=== PATIENT | female | born 1960 | race Caucasian/White ===

== ENCOUNTER → 2017-05-16 | Outpatient (REF) | payer MEDICARE ==
[2017-05-16 12:06] LABS: ALBUMIN 3.8 GM/DL (3.2-5.2); ALBUMIN/GLOBULIN RATIO 1.15 (1.00-1.93); ALKALINE PHOSPHATASE 71 U/L (45-117); ALT/SGPT 42 U/L (12-78); ANION GAP 10 MEQ/L (8-16); AST/SGOT 29 U/L (15-37); BILIRUBIN,TOTAL 0.4 MG/DL (0.2-1.0); BLOOD UREA NITROGEN 11 MG/DL (7-18); CARBON DIOXIDE LEVEL 28 MEQ/L (21-32); CHLORIDE LEVEL 102 MEQ/L (98-107); CHOLESTEROL LEVEL 253 MG/DL (<200); GLOMERULAR FILTRATION RATE > 60.0 (>51); GLUCOSE, FASTING 107 MG/DL (70-105); SODIUM LEVEL 140 MEQ/L (136-145); TOTAL PROTEIN 7.1 GM/DL (6.4-8.2); TRIGLYCERIDES LEVEL 246 MG/DL (<150)
== END ==
LOC: M LABDRAW1 11:05
PROVIDERS: ATTEND Nurse Practitioner Family
DX: E78.4 Other hyperlipidemia (principal); I10 Essential (primary) hypertension; E11.9 Type 2 diabetes mellitus without complications

== ENCOUNTER → 2017-11-13 | Outpatient (CLI) | payer MEDICARE ==
[2017-11-13 13:37] LABS: BASO % 0.5 % (0.0-1.0); EOS # 0.2 10^3/uL (0.0-0.50); EOS % 2.4 % (0.0-3.0); HEMATOCRIT 37.7 % (36.0-47.0); HEMOGLOBIN 12.5 g/dl (12.0-16.0); IMMATURE GRANULOCYTE % 0.1 % (0-0); LYMPH # 3.1 10^3/uL (1.5-4.5); LYMPH % 40.4 % (24.0-44.0); MEAN CORPUSCULAR HEMOGLOBIN 28.2 pg (27.0-33.0); MEAN CORPUSCULAR HGB CONC 33.2 g/dl (32.0-36.5); MEAN CORPUSCULAR VOLUME 85.1 fl (80.0-96.0); MONO # 0.4 10^3/uL (0.0-0.8); MONO % 4.9 % (0.0-5.0); NEUTROPHILS # 3.9 10^3/uL (1.8-7.7); NEUTROPHILS % 51.7 % (36.0-66.0); PLATELET COUNT, AUTOMATED 288 10^3/uL (150-450); RED BLOOD COUNT 4.43 10^6/uL (4.00-5.40); RED CELL DISTRIBUTION WIDTH 12.7 % (11.5-14.5); WHITE BLOOD COUNT 7.6 10^3/uL (4.0-10.0)
[2017-11-13 14:17] LABS: ALBUMIN 3.8 GM/DL (3.2-5.2); ALBUMIN/GLOBULIN RATIO 1.09 (1.00-1.93); ALKALINE PHOSPHATASE 75 U/L (45-117); ALT/SGPT 47 U/L (12-78); ANION GAP 8 MEQ/L (8-16); AST/SGOT 33 U/L (7-37); BILIRUBIN,TOTAL 0.3 MG/DL (0.2-1.0); BLOOD UREA NITROGEN 13 MG/DL (7-18); CALCIUM LEVEL 8.7 MG/DL (8.5-10.1); CARBON DIOXIDE LEVEL 30 MEQ/L (21-32); CHLORIDE LEVEL 104 MEQ/L (98-107); CHOLESTEROL LEVEL 253 MG/DL (<200); CHOLESTEROL RISK RATIO 6.487 (<5); CREATININE FOR GFR 0.65 MG/DL (0.55-1.02); GLOMERULAR FILTRATION RATE > 60.0 (>51); GLUCOSE, FASTING 94 MG/DL (70-100); HDL CHOLESTEROL 39 MG/DL (>40); LDL CHOLESTEROL 174.8 MG/DL (<100); NON-HDL-C 214 MG/DL; POTASSIUM SERUM 4.3 MEQ/L (3.5-5.1); SODIUM LEVEL 142 MEQ/L (136-145); TOTAL PROTEIN 7.3 GM/DL (6.4-8.2); TRIGLYCERIDES LEVEL 196 MG/DL (<150)
[2017-11-13 14:36] LABS: ESTIMATED AVERAGE GLUCOSE 123 MG/DL (60-110); HEMOGLOBIN A1c 5.9 %
== END ==
LOC: M WUC 09:30
DX: I10 Essential (primary) hypertension (principal); E11.9 Type 2 diabetes mellitus without complications; E78.4 Other hyperlipidemia
CPT/HCPCS: 80053

== ENCOUNTER → 2018-05-11 | Outpatient (CLI) | payer MEDICARE | LOC: M WUC 09:44 | DX: M16.11 Unilateral primary osteoarthritis, right hip (principal) | CPT/HCPCS: 73502 ==

== ENCOUNTER → 2018-11-04 | Outpatient (CLI) | payer MEDICARE ==
[2018-11-04 12:04] LABS: BASO % 0.6 % (0.0-1.0); EOS # 0.2 10^3/uL (0.0-0.50); EOS % 2.9 % (0.0-3.0); HEMATOCRIT 36.3 % (36.0-47.0); HEMOGLOBIN 12.2 g/dl (12.0-15.5); LYMPH % 44.6 % (24.0-44.0); MEAN CORPUSCULAR HEMOGLOBIN 28.8 pg (27.0-33.0); MEAN CORPUSCULAR HGB CONC 33.6 g/dl (32.0-36.5); MEAN CORPUSCULAR VOLUME 85.8 fl (80.0-96.0); MONO # 0.4 10^3/uL (0.0-0.8); MONO % 5.4 % (0.0-5.0); NEUTROPHILS # 3.1 10^3/uL (1.8-7.7); NEUTROPHILS % 46.3 % (36.0-66.0); PLATELET COUNT, AUTOMATED 289 10^3/uL (150-450); RED BLOOD COUNT 4.23 10^6/uL (4.00-5.40); WHITE BLOOD COUNT 6.6 10^3/uL (4.0-10.0)
[2018-11-04 12:29] LABS: HEMOGLOBIN A1c 5.8 %
[2018-11-04 12:36] LABS: ALBUMIN 3.7 GM/DL (3.2-5.2); ALT/SGPT 66 U/L (12-78); BILIRUBIN,TOTAL 0.3 MG/DL (0.2-1.0); BLOOD UREA NITROGEN 17 MG/DL (7-18); CALCIUM LEVEL 8.8 MG/DL (8.5-10.1); CARBON DIOXIDE LEVEL 28 MEQ/L (21-32); CHLORIDE LEVEL 104 MEQ/L (98-107); CHOLESTEROL LEVEL 260 MG/DL (<200); CHOLESTEROL RISK RATIO 7.428 (<5); CPK CREATINE PHOSPHOKINASE 75 U/L (26-192); CREATININE FOR GFR 0.66 MG/DL (0.55-1.30); GLOMERULAR FILTRATION RATE > 60.0 (>51); GLUCOSE, FASTING 98 MG/DL (70-100); HDL CHOLESTEROL 35 MG/DL (>40); LDL CHOLESTEROL 177 MG/DL (<100); NON-HDL-C 225 MG/DL; SODIUM LEVEL 140 MEQ/L (136-145); TOTAL PROTEIN 6.8 GM/DL (6.4-8.2); TRIGLYCERIDES LEVEL 239 MG/DL (<150)
== END ==
LOC: M WUC 09:47
PROVIDERS: ATTEND Nurse Practitioner Family
DX: I10 Essential (primary) hypertension (principal); E11.9 Type 2 diabetes mellitus without complications; E78.49 Other hyperlipidemia

== ENCOUNTER 2020-04-21 04:07 | Emergency (ER) | payer MEDICARE ==
[~2020-04-21] VITALS: Ht 162.6 cm; Wt 122.7 kg
[2020-04-21] MEDS ORDERED: NS 1,000 ML IV ONE (04:30)
[2020-04-21] MEDS ORDERED: KETOROLAC 30 MG/ML 1ML VIAL IV ONE (04:30)
[2020-04-21] MEDS ORDERED: ONDANSETRON 4MG/2ML VIAL IV ONE (04:30)
[2020-04-21 04:36] LABS: BASO % 0.3 % (0.0-1.0); EOS # 0.1 10^3/uL (0.0-0.5); EOS % 0.5 % (0.0-3.0); HEMATOCRIT 36.7 % (36.0-47.0); HEMOGLOBIN 12.3 g/dl (12.0-15.5); LYMPH # 1.5 10^3/uL (1.5-5.0); LYMPH % 11.2 % (24.0-44.0); MEAN CORPUSCULAR HEMOGLOBIN 28.3 pg (27.0-33.0); MEAN CORPUSCULAR HGB CONC 33.5 g/dl (32.0-36.5); MEAN CORPUSCULAR VOLUME 84.4 fl (80.0-96.0); MONO # 0.7 10^3/uL (0.0-0.8); MONO % 5.2 % (0.0-5.0); NEUTROPHILS # 11.2 10^3/uL (1.5-8.5); NEUTROPHILS % 82.3 % (36.0-66.0); PLATELET COUNT, AUTOMATED 241 10^3/uL (150-450); RED BLOOD COUNT 4.35 10^6/uL (4.00-5.40); WHITE BLOOD COUNT 13.6 10^3/uL (4.0-10.0)
[2020-04-21 05:06] LABS: ALBUMIN 3.8 GM/DL (3.2-5.2); BILIRUBIN,DIRECT 0.1 MG/DL (0.0-0.2); BILIRUBIN,TOTAL 0.7 MG/DL (0.2-1.0); TOTAL PROTEIN 7.6 GM/DL (6.4-8.2)
--- NOTE | 2020-04-21 06:45 | REPVR ---
PROCEDURE INFORMATION: Exam: CT Abdomen And Pelvis Without Contrast Exam date and time: 04/21/2020 6:00 AM Age: 60 years old Clinical indication: Abdominal pain; Flank; Right; Additional info: Right flank pain TECHNIQUE: Imaging protocol: Computed tomography of the abdomen and pelvis without contrast. Radiation optimization: All CT scans at this facility use at least one of these dose optimization techniques: automated exposure control; mA and/or kV adjustment per patient size (includes targeted exams where dose is matched to clinical indication); or iterative reconstruction. COMPARISON: CR HIP COMPLETE 05/11/2018 9:49 AM FINDINGS: Lungs: Subpleural nodule in the posterior basal left lower lobe measuring 3 mm. (Series 201, image 21).There is dependent subcutaneous edema. Liver: Normal. No mass. Gallbladder and bile ducts: Status post cholecystectomy. No biliary ductal dilatation. Pancreas: Normal. No ductal dilation. Spleen: Normal. No splenomegaly. Adrenals: Normal. No mass. Kidneys and ureters: Mild right hydronephrosis. Mild right perinephric stranding. Nonobstructive stone in the lower pole of the right kidney measuring 3 mm. Stone in the right ureterovesicular junction measuring 4 mm. No left hydronephrosis. Stomach and bowel: Sigmoid diverticulosis without diverticulitis. No abnormal bowel dilatation. No abnormal bowel wall thickening. Appendix: Appendix is normal. Intraperitoneal space: Unremarkable. No free air. No significant fluid collection. Vasculature: Unremarkable. No abdominal aortic aneurysm. Lymph nodes: Unremarkable. No enlarged lymph nodes. Bladder: Bladder is decompressed. Reproductive: Uterus is normal. Bones/joints: Mild degenerative spine. No acute fracture. Soft tissues: Moderate ventral right upper quadrant abdominal hernia containing fat. Moderate umbilical hernia containing fat. There is no evidence of strangulation. There is dependent subcutaneous edema. IMPRESSION: 1. Acute obstructive right uropathy with ureterovesicular junction stone. 2. Nonobstructive stone in the right kidney. 3. Small subpleural nodule in the posterior basal left lower lobe. For patients at low risk (minimal or absent history of smoking and of other known risk factors), no routine follow-up is indicated. For patients at high risk (history of smoking or of other known risk factors), consider optional CT at 12 months. (Jamal et al., [employer], 2017) 4. Additional findings as described. Electronically signed by: Prieto Miller On 04/21/2020 06:44:53 AM
[2020-04-21] MEDS ORDERED: CIPR-249 PO (06:58)
[2020-04-21] MEDS ORDERED: PERC5TAB12 PO (06:58)
[2020-04-21] MEDS ORDERED: FLOM0.4C39 PO (06:58)
[2020-04-21] MEDS ORDERED: OXYCODONE/APAP 5MG/325MG(BULK FOR ED) 1 TABLET PO ONE (07:00)
[2020-04-21 07:15] VITALS: BP 145/58
[2020-04-21] MEDS ORDERED: PERCOCET 5MG/325MG TAB PO ONE (07:15)
[2020-04-21] MEDS ORDERED: TAMSULOSIN 0.4 MG CAP PO ONE (08:00)
[2020-04-21] MEDS ORDERED: CIPROFLOXACIN 500MG TABLET PO ONE (08:00)
--- NOTE | 2020-04-24 09:58 | ED PDOC ---
Post-Departure Follow-Up certifiied letter sent to pt re formal report of ct abd/p for fu Adan Hill MD Apr 24, 2020 09:58
== END 2020-04-21 07:28 | disposition home or self-care (01) ==
LOC: M ED 04:07
DX: N20.1 Calculus of ureter (principal); N39.0 Urinary tract infection, site not specified; I10 Essential (primary) hypertension; R91.1 Solitary pulmonary nodule
CPT/HCPCS: 74176; 80047; 80076; 81001; 83690; 85025; 87088; 87186; 93041; 96361; 96374; 96375; 99284; J1885; J2405

== ENCOUNTER 2024-04-03 11:37 | Emergency (ER) | payer MEDICARE ==
[~2024-04-03] VITALS: Ht 160 cm; Wt 114.2 kg
[~2024-04-03 11:37] MED LIST: CEFD300CAP PO; CIPR-249 PO; FLOM0.4C39 PO; PERC5TAB12 PO; PROB250C PO
[2024-04-03] MEDS ORDERED: IBUP200C25 PO (11:47)
[2024-04-03] MEDS ORDERED: CEFD1CAP9 (11:47)
[2024-04-03 12:37] LABS: HEMATOCRIT 30.1 % (36.0-47.0); HEMOGLOBIN 10.2 g/dl (12.0-15.5); MEAN CORPUSCULAR HEMOGLOBIN 28.2 pg (27.0-33.0); MEAN CORPUSCULAR HGB CONC 33.9 g/dl (32.0-36.5); MEAN CORPUSCULAR VOLUME 83.1 fl (80.0-96.0); PLATELET COUNT, AUTOMATED 262 10^3/uL (150-450); RED BLOOD COUNT 3.62 10^6/uL (4.00-5.40); WHITE BLOOD COUNT 8.9 10^3/uL (4.0-10.0)
[2024-04-03 12:58] LABS: ATYPICAL LYMPH 7 % (0-5); BASOPHILS 2 % (0-1); EOSINOPHILS 6 % (0-3); LYMPHOCYTES 11 % (16-44); METAMYELOCYTES 1 % (0-0); MONOCYTES 6 % (0-5); MYELOCYTES 4 % (0-0); NEUTROPHILS 62 % (28-66)
[2024-04-03 12:59] LABS: PLATELET CLUMPS SMALL AMT; PLATELET ESTIMATE NORMAL (NORMAL)
[2024-04-03 13:08] LABS: ALBUMIN 2.6 G/DL (3.2-5.2); ALKALINE PHOSPHATASE 71 U/L (46-116); ALT/SGPT 22 U/L (7.0-40); AST/SGOT 46 U/L (<34); BILIRUBIN,DIRECT < 0.1 MG/DL (<0.4); BILIRUBIN,TOTAL 0.3 MG/DL (0.3-1.2); CK-MB VALUE MASS < 1.0 NG/ML (<3.6); CPK CREATINE PHOSPHOKINASE 49 U/L (34-145); MB/CK RELATIVE INDEX 2.04 (< OR =4); TOTAL PROTEIN 6.5 G/DL (5.7-8.2)
[2024-04-03 13:21] LABS: ERYTHROCYTE SEDIMENTATION RATE 85 mm/hr (0-30)
[2024-04-03] MEDS ORDERED: ISOVUE-370 76% 100ML VIAL As Ordered ONE (13:30)
[2024-04-03 13:46] LABS: PROCALCITONIN 0.93 ng/ml
[2024-04-03] MEDS: KETOROLAC 30 MG/ML 1ML VIAL IV ONE (14:01)
[2024-04-03] MEDS: NS 1,000 ML IV ONE (14:01)
[2024-04-03] MEDS: ONDANSETRON 4MG 2ML VIAL IV ONE (14:01)
[2024-04-03 14:12] LABS: APPEARANCE, URINE HAZY (CLEAR); BACTERIA, URINE AUTO NEGATIVE (NEGATIVE); BILIRUBIN, URINE AUTO NEGATIVE (NEGATIVE); BLOOD, URINE BLOOD 2+ (NEGATIVE); COLOR, URINE YELLOW (YELLOW); GLUCOSE, URINE (UA) AUTO NEGATIVE (NEGATIVE); KETONE, URINE AUTO NEGATIVE (NEGATIVE); LEUKOCYTE ESTERASE, URINE AUTO 2+ (NEGATIVE); MUCUS, URINE SMALL (NEGATIVE); NITRITE, URINE AUTO NEGATIVE (NEGATIVE); PROTEIN, URINE AUTO 1+ mg/dL (NEGATIVE); RBC, URINE AUTO 32 /HPF (0-3); SQUAMOUS EPITHELIAL CELL UR AU 2 /HPF (0-6); UROBILINOGEN, URINE AUTO 0.2 mg/dL (0.0-2.0); WBC, URINE AUTO 43 /HPF (0-3)
[2024-04-03] MEDS: MORPHINE 4 MG/ML 1ML VIAL IV ONE (14:36)
[2024-04-03 16:45] VITALS: BP 136/57; O2SAT 90
[2024-04-03 16:57] VITALS: TEMP 97.6
== END 2024-04-03 17:08 | disposition home or self-care (01) ==
LOC: M ED 11:37
DX: R10.11 Right upper quadrant pain (principal); R10.31 Right lower quadrant pain; I10 Essential (primary) hypertension; Z87.442 Personal history of urinary calculi; Z87.448 Personal history of other diseases of urinary system; Z96.0 Presence of urogenital implants
CPT/HCPCS: 71046; 74177; 80047; 80076; 81001; 82550; 82553; 83605; 84145; 84484; 85025; 85652; 86140; 87486; 87581; 87633; 87798; 93005; 96361; 96374; 96375; 99284; J1885; J2405; Q9967

== ENCOUNTER → 2024-04-13 | Outpatient (REF) | payer MEDICARE ==
[~2024-04-13] MED LIST changes: +CEFD1CAP9; +IBUP200C25 PO
[2024-04-13 15:21] LABS: APPEARANCE, URINE CLOUDY (CLEAR); BACTERIA, URINE AUTO NEGATIVE (NEGATIVE); BILIRUBIN, URINE AUTO NEGATIVE (NEGATIVE); BLOOD, URINE BLOOD 3+ (NEGATIVE); COLOR, URINE YELLOW (YELLOW); GLUCOSE, URINE (UA) AUTO NEGATIVE (NEGATIVE); KETONE, URINE AUTO TRACE mg/dL (NEGATIVE); LEUKOCYTE ESTERASE, URINE AUTO 3+ (NEGATIVE); MUCUS, URINE SMALL (NEGATIVE); NITRITE, URINE AUTO NEGATIVE (NEGATIVE); PROTEIN, URINE AUTO 1+ mg/dL (NEGATIVE); RBC, URINE AUTO 120 /HPF (0-3); SPECIFIC GRAVITY URINE AUTO 1.012 (1.002-1.035); SQUAMOUS EPITHELIAL CELL UR AU 3 /HPF (0-6); UROBILINOGEN, URINE AUTO 0.2 mg/dL (0.0-2.0); WBC, URINE AUTO TNTC /HPF (0-3)
== END ==
LOC: M SFHCPLAZ 12:01
PROVIDERS: ATTEND Family Medicine
DX: R35.0 Frequency of micturition (principal); Z09 Encounter for follow-up examination after completed treatment for conditions other than malignant neoplasm

== ENCOUNTER → 2024-04-13 | Outpatient (CLI) | payer MEDICARE ==
[~2024-04-13] MED LIST changes: +ACET-683 PO; +CEFD1CAP9 PO; +ONDA-83 PO; +OXYB5TAB14 PO; +PANT-23 PO; +PERCOCET PO
[2024-04-13 15:40] LABS: BASO % 0.4 % (0.0-1.0); EOS # 0.1 10^3/uL (0.0-0.5); EOS % 1.3 % (0.0-3.0); HEMATOCRIT 35.9 % (36.0-47.0); HEMOGLOBIN 11.8 g/dl (12.0-15.5); LYMPH # 3.1 10^3/uL (1.5-5.0); LYMPH % 34.1 % (24.0-44.0); MEAN CORPUSCULAR HEMOGLOBIN 27.6 pg (27.0-33.0); MEAN CORPUSCULAR HGB CONC 32.9 g/dl (32.0-36.5); MEAN CORPUSCULAR VOLUME 84.1 fl (80.0-96.0); MONO # 0.5 10^3/uL (0.0-0.8); MONO % 5.2 % (2.0-8.0); NEUTROPHILS # 5.3 10^3/uL (1.5-8.5); NEUTROPHILS % 58.7 % (36.0-66.0); PLATELET COUNT, AUTOMATED 319 10^3/uL (150-450); RED BLOOD COUNT 4.27 10^6/uL (4.00-5.40); WHITE BLOOD COUNT 9.1 10^3/uL (4.0-10.0)
[2024-04-13 16:08] LABS: ALBUMIN 3.5 G/DL (3.2-5.2); ALKALINE PHOSPHATASE 67 U/L (46-116); ALT/SGPT 29 U/L (7.0-40); AST/SGOT 34 U/L (<34); BILIRUBIN,TOTAL 0.5 MG/DL (0.3-1.2); BLOOD UREA NITROGEN 12 MG/DL (9-23); CALCIUM LEVEL 9.1 MG/DL (8.3-10.6); CARBON DIOXIDE LEVEL 31 MMOL/L (20-31); CHLORIDE LEVEL 102 MMOL/L (98-107); CREATININE FOR GFR 0.64 MG/DL (0.55-1.30); GLOMERULAR FILTRATION RATE > 60.0 (>45); GLUCOSE, FASTING 149 MG/DL (74-106); POTASSIUM SERUM 3.4 MMOL/L (3.5-5.1); SODIUM LEVEL 142 MMOL/L (136-145); TOTAL PROTEIN 7.5 G/DL (5.7-8.2)
== END ==
LOC: M PLALAB 12:18
PROVIDERS: ATTEND Student in an Organized Health Care Education/Training Program
DX: Z09 Encounter for follow-up examination after completed treatment for conditions other than malignant neoplasm (principal); R35.0 Frequency of micturition

== ENCOUNTER → 2024-05-04 | Outpatient (CLI) | payer MEDICARE ==
[2024-05-04 17:53] LABS: BASO % 0.3 % (0.0-1.0); EOS # 0.2 10^3/uL (0.0-0.5); EOS % 1.7 % (0.0-3.0); HEMATOCRIT 35.2 % (36.0-47.0); HEMOGLOBIN 11.2 g/dl (12.0-15.5); LYMPH # 2.4 10^3/uL (1.5-5.0); LYMPH % 27.1 % (24.0-44.0); MEAN CORPUSCULAR HGB CONC 31.8 g/dl (32.0-36.5); MEAN CORPUSCULAR VOLUME 84.8 fl (80.0-96.0); MONO # 0.5 10^3/uL (0.0-0.8); MONO % 5.7 % (2.0-8.0); NEUTROPHILS # 5.8 10^3/uL (1.5-8.5); NEUTROPHILS % 64.6 % (36.0-66.0); PLATELET COUNT, AUTOMATED 333 10^3/uL (150-450); RED BLOOD COUNT 4.15 10^6/uL (4.00-5.40)
[2024-05-04 18:06] LABS: ALBUMIN 3.4 G/DL (3.2-5.2); ALKALINE PHOSPHATASE 73 U/L (46-116); ALT/SGPT 12 U/L (7.0-40); AST/SGOT 13 U/L (<34); BILIRUBIN,TOTAL 0.4 MG/DL (0.3-1.2); BLOOD UREA NITROGEN 11 MG/DL (9-23); CARBON DIOXIDE LEVEL 34 MMOL/L (20-31); CHLORIDE LEVEL 100 MMOL/L (98-107); CREATININE FOR GFR 0.95 MG/DL (0.55-1.30); GLOMERULAR FILTRATION RATE > 60.0 (>45); GLUCOSE, FASTING 160 MG/DL (74-106); MAGNESIUM LEVEL 1.8 MG/DL (1.8-2.4); POTASSIUM SERUM 3.4 MMOL/L (3.5-5.1); SODIUM LEVEL 139 MMOL/L (136-145); TOTAL PROTEIN 7.4 G/DL (5.7-8.2)
[2024-05-15 02:16] LABS: ALPHA 2-MACROGLOBULINS,QN 338 mg/dL (106-279); ALT (SGPT) P5P 8 U/L (6-29); APOLIPOPROTEIN A-1 107 mg/dL (101-198); BILIRUBIN, TOTAL 0.3 mg/dL (0.2-1.2); FIBROSIS SCORE 0.39; FIBROSIS STAGE MINIMAL FIBROSIS (F0); GGT 39 U/L (3-65); HAPTOGLOBIN 317 mg/dL (43-212); NECROINFLAM ACT GRADE NO ACTIVITY (A0); NECROINFLAM ACT SCORE 0.02
== END ==
LOC: M PLALAB 15:22
PROVIDERS: ATTEND Student in an Organized Health Care Education/Training Program
DX: Z09 Encounter for follow-up examination after completed treatment for conditions other than malignant neoplasm (principal); K74.69 Other cirrhosis of liver

== ENCOUNTER → 2024-05-04 | Outpatient (REF) | payer MEDICARE | LOC: M SFHCPLAZ 09:48 | PROVIDERS: ATTEND Family Medicine | DX: Z09 Encounter for follow-up examination after completed treatment for conditions other than malignant neoplasm (principal); K74.69 Other cirrhosis of liver ==

== ENCOUNTER 2024-05-13 07:17 | Day surgery (SDC) | payer MEDICARE ==
[~2024-05-13] VITALS: Ht 160 cm; Wt 105.0 kg
[2024-05-13] MEDS ORDERED: LIDOCAINE 1% SDV 5ML VIAL SC PRN (07:40)
[2024-05-13] MEDS ORDERED: propofoL 200 MG/20 ML VIAL As Ordered ONE (07:44)
[2024-05-13] MEDS ORDERED: LIDOCAINE 2% 100MG/5ML SDV (FOR ANES.) As Ordered ONE (07:44)
[2024-05-13] MEDS ORDERED: MIDAZOLAM INJ 2MG/2ML VIAL As Ordered ONE (07:57)
[2024-05-13] MEDS ORDERED: fentaNYL 100 MCG/2 ML INJECTION As Ordered ONE (07:57)
[2024-05-13] MEDS: LR 1,000 ML IV SCH (08:52)
[2024-05-13] MEDS: ceFAZolin SOD 2 GM in IV 1 EA IV ONE (09:15)
[2024-05-13] MEDS ORDERED: OXYB5TAB14 PO (09:46)
[2024-05-13] MEDS ORDERED: ACETAMINOPHEN 1000MG 100ML IV BAG As Ordered ONE (09:55)
[2024-05-13] MEDS ORDERED: KETOROLAC 60MG 2ML VIAL As Ordered ONE (09:55)
[2024-05-13] MEDS ORDERED: oxyBUTYnin 5 MG TAB PO PRN (10:15)
[2024-05-13 10:40] VITALS: BP 129/64; TEMP 97.6; O2SAT 96
== END 2024-05-13 10:40 | disposition home or self-care (01) ==
LOC: M SDC 07:17
PROVIDERS: ATTEND Urology
DX: N20.0 Calculus of kidney (principal); K21.9 Gastro-esophageal reflux disease without esophagitis; Z79.899 Other long term (current) drug therapy
CPT/HCPCS: 50590; 74018; J0131; J0690; J1885; J2250; J3010

== ENCOUNTER 2024-05-18 13:54 | Inpatient (IN) | payer MEDICARE ==
[~2024-05-18] VITALS: Ht 160 cm; Wt 104.0 kg
[2024-05-18 16:07] LABS: BASO % 0.3 % (0.0-1.0); EOS # 0.2 10^3/uL (0.0-0.5); EOS % 1.3 % (0.0-3.0); HEMATOCRIT 36.8 % (36.0-47.0); HEMOGLOBIN 11.9 g/dl (12.0-15.5); LYMPH # 2.3 10^3/uL (1.5-5.0); LYMPH % 18.1 % (24.0-44.0); MEAN CORPUSCULAR HEMOGLOBIN 26.6 pg (27.0-33.0); MEAN CORPUSCULAR HGB CONC 32.3 g/dl (32.0-36.5); MEAN CORPUSCULAR VOLUME 82.1 fl (80.0-96.0); MONO # 0.9 10^3/uL (0.0-0.8); MONO % 6.9 % (2.0-8.0); NEUTROPHILS # 9.3 10^3/uL (1.5-8.5); PLATELET COUNT, AUTOMATED 339 10^3/uL (150-450); RED BLOOD COUNT 4.48 10^6/uL (4.00-5.40); WHITE BLOOD COUNT 12.8 10^3/uL (4.0-10.0)
[2024-05-18 16:29] LABS: ALBUMIN 3.6 G/DL (3.2-5.2); BILIRUBIN,DIRECT 0.2 MG/DL (<0.4); BILIRUBIN,TOTAL 0.7 MG/DL (0.3-1.2); CREATININE FOR GFR 1.07 MG/DL (0.55-1.30); GLOMERULAR FILTRATION RATE 54.8 (>45); POTASSIUM SERUM 3.5 MMOL/L (3.5-5.1)
[2024-05-18] MEDS: NS 1,000 ML IV ONE ×2 (17:32→23:07)
[2024-05-18] MEDS: ONDANSETRON 4MG 2ML VIAL IV ONE (17:43)
[2024-05-18] MEDS: KETOROLAC 30 MG/ML 1ML VIAL IV ONE (17:44)
[2024-05-18] MEDS ORDERED: ISOVUE-370 76% 100ML VIAL As Ordered ONE (18:40)
[2024-05-18] MEDS ORDERED: MOM 30ML SUSPENSION UDC PO PRN (22:30)
[2024-05-18] MEDS ORDERED: ONDA-83 PO (22:47)
[2024-05-18] MEDS ORDERED: HOME MED LIST COMPLETE! XX SCH (22:50)
[2024-05-18] MEDS: cefTRIAXone SOD 2 GM in D5W MINI-BAG PLUS 50 ML IV SCH (23:07)
[2024-05-18] MEDS: PROMETHAZINE 25MG/ML 1ML VIAL IV PRN (23:10)
[2024-05-18] MEDS: MORPHINE 2 MG/ML 1ML VIAL IV PRN (23:11)
[2024-05-18] MEDS: NS 1,000 ML IV SCH (23:12)
[2024-05-19] MEDS: HEPARIN SOD (PORCINE) 5000UNITS/ML 1ML VIAL/SYRINGE SC SCH (05:32)
[2024-05-19] MEDS: ACETAMINOPHEN TAB 650MG DOSE (2X325MG) PO PRN (05:53)
[2024-05-19 07:41] LABS: MEAN CORPUSCULAR HEMOGLOBIN 26.8 pg (27.0-33.0); MEAN CORPUSCULAR HGB CONC 32.5 g/dl (32.0-36.5); MEAN CORPUSCULAR VOLUME 82.6 fl (80.0-96.0); RED BLOOD COUNT 3.39 10^6/uL (4.00-5.40); WHITE BLOOD COUNT 8.4 10^3/uL (4.0-10.0)
[2024-05-19 07:49] LABS: HEMOGLOBIN 9.1 g/dl (12.0-15.5); PLATELET COUNT, AUTOMATED 236 10^3/uL (150-450)
[2024-05-19 07:53] LABS: ALBUMIN 2.7 G/DL (3.2-5.2); BILIRUBIN,TOTAL 0.5 MG/DL (0.3-1.2); CALCIUM LEVEL 7.6 MG/DL (8.3-10.6); CREATININE FOR GFR 0.99 MG/DL (0.55-1.30); GLOMERULAR FILTRATION RATE 59.9 (>45); POTASSIUM SERUM 3.2 MMOL/L (3.5-5.1); TOTAL PROTEIN 6.2 G/DL (5.7-8.2)
[2024-05-19 10:09] LABS: HEMOGLOBIN A1c 6.6 % (4.0-6.0)
[2024-05-19] MEDS: KETOROLAC 30 MG/ML 1ML VIAL IV PRN (14:15)
[2024-05-19] MEDS: POTASSIUM CHLORIDE 10MEQ SR TABLET PO ONE (14:18)
[2024-05-19 16:37] VITALS: BP 156/68; TEMP 97.4; O2SAT 96
[2024-05-19 19:00] VITALS: BP 148/65; TEMP 97.8; O2SAT 96
[2024-05-19] MEDS: MORPHINE 4 MG/ML 1ML VIAL IV PRN (19:56)
[2024-05-19] MEDS: SENOKOT S TAB PO SCH (20:01)
[2024-05-19 23:42] VITALS: BP 130/61; TEMP 98.5; O2SAT 96
[2024-05-20 04:11] VITALS: BP 150/65; TEMP 97.1; O2SAT 94
[2024-05-20] MEDS: PROMETHAZINE 25 MG TAB PO ONE (05:28)
[2024-05-20 07:42] VITALS: BP 126/58; TEMP 96.9; O2SAT 96
[2024-05-20 07:59] LABS: BASO % 0.5 % (0.0-1.0); EOS # 0.2 10^3/uL (0.0-0.5); EOS % 4.2 % (0.0-3.0); HEMOGLOBIN 9.6 g/dl (12.0-15.5); LYMPH % 35.3 % (24.0-44.0); MEAN CORPUSCULAR HEMOGLOBIN 26.9 pg (27.0-33.0); MONO # 0.4 10^3/uL (0.0-0.8); MONO % 6.9 % (2.0-8.0); NEUTROPHILS # 2.9 10^3/uL (1.5-8.5); NEUTROPHILS % 52.7 % (36.0-66.0); PLATELET COUNT, AUTOMATED 251 10^3/uL (150-450); RED BLOOD COUNT 3.57 10^6/uL (4.00-5.40); WHITE BLOOD COUNT 5.5 10^3/uL (4.0-10.0)
[2024-05-20 08:24] LABS: BLOOD UREA NITROGEN 10 MG/DL (9-23); CARBON DIOXIDE LEVEL 29 MMOL/L (20-31); CHLORIDE LEVEL 106 MMOL/L (98-107); CREATININE FOR GFR 0.92 MG/DL (0.55-1.30); GLOMERULAR FILTRATION RATE > 60.0 (>45); GLUCOSE, FASTING 120 MG/DL (74-106); POTASSIUM SERUM 3.6 MMOL/L (3.5-5.1); SODIUM LEVEL 143 MMOL/L (136-145)
[2024-05-20] MEDS ORDERED: ONDANSETRON 4MG 2ML VIAL IV PRN (10:50)
[2024-05-20] MEDS: PANTOPRAZOLE 40MG VIAL IV SCH (11:58)
[2024-05-20] MEDS: METOCLOPRAMIDE 5 MG TAB PO SCH (11:58)
[2024-05-20 12:57] VITALS: BP 136/65; TEMP 98.1; O2SAT 94
[2024-05-20 13:30] VITALS: BP 142/75; TEMP 97.5; O2SAT 95
[2024-05-20] MEDS: oxyBUTYnin 5 MG TAB PO PRN (17:45)
[2024-05-20] MEDS: KETOROLAC 30 MG/ML 1ML VIAL IV PRN (18:46)
[2024-05-20 20:00] VITALS: BP 137/53; TEMP 97.3; O2SAT 96
[2024-05-21 04:00] VITALS: BP 149/60; TEMP 97; O2SAT 98
[2024-05-21 06:07] LABS: BASO % 0.2 % (0.0-1.0); EOS # 0.2 10^3/uL (0.0-0.5); EOS % 4.4 % (0.0-3.0); HEMATOCRIT 28.6 % (36.0-47.0); HEMOGLOBIN 9.2 g/dl (12.0-15.5); LYMPH # 1.7 10^3/uL (1.5-5.0); LYMPH % 37.3 % (24.0-44.0); MEAN CORPUSCULAR HEMOGLOBIN 26.8 pg (27.0-33.0); MEAN CORPUSCULAR HGB CONC 32.2 g/dl (32.0-36.5); MEAN CORPUSCULAR VOLUME 83.4 fl (80.0-96.0); MONO # 0.3 10^3/uL (0.0-0.8); NEUTROPHILS # 2.3 10^3/uL (1.5-8.5); NEUTROPHILS % 50.4 % (36.0-66.0); PLATELET COUNT, AUTOMATED 235 10^3/uL (150-450); RED BLOOD COUNT 3.43 10^6/uL (4.00-5.40); WHITE BLOOD COUNT 4.6 10^3/uL (4.0-10.0)
[2024-05-21 06:32] LABS: BLOOD UREA NITROGEN 12 MG/DL (9-23); CARBON DIOXIDE LEVEL 28 MMOL/L (20-31); CHLORIDE LEVEL 106 MMOL/L (98-107); CREATININE FOR GFR 0.87 MG/DL (0.55-1.30); GLOMERULAR FILTRATION RATE > 60.0 (>45); GLUCOSE, FASTING 136 MG/DL (74-106); POTASSIUM SERUM 3.5 MMOL/L (3.5-5.1); SODIUM LEVEL 142 MMOL/L (136-145)
[2024-05-21 12:17] VITALS: BP 152/73; TEMP 97.5; O2SAT 94
[2024-05-21] MEDS ORDERED: METO5TAB2 PO (12:23)
[2024-05-21] MEDS ORDERED: CEFD1CAP9 PO (12:23)
[2024-05-21] MEDS ORDERED: OMEP40CA4 PO (12:24)
== END 2024-05-21 13:54 | disposition home or self-care (01) | DRG 862 ==
LOC: M ED 13:54 → M ED INP 22:30 → EEVIPCON 22:30 → M PCU 05-19 16:32 → M MSPAV 05-20 13:39
PROVIDERS: ADMIT Family Medicine; ATTEND Internal Medicine Nephrology
DX: T81.40XA Infection following a procedure, unspecified, initial encounter (principal); A41.9 Sepsis, unspecified organism; N10 Acute pyelonephritis; Z68.41 Body mass index [BMI] 40.0-44.9, adult; N13.30 Unspecified hydronephrosis; I10 Essential (primary) hypertension; E11.9 Type 2 diabetes mellitus without complications; K74.60 Unspecified cirrhosis of liver; K75.81 Nonalcoholic steatohepatitis (NASH); E66.01 Morbid (severe) obesity due to excess calories; Z79.899 Other long term (current) drug therapy

== ENCOUNTER → 2024-05-25 | Outpatient (REF) | payer MEDICARE ==
[~2024-05-25] MED LIST changes: +METO5TAB2 PO; +OMEP40CA4 PO
== END ==
LOC: M SFHCPLAZ 17:33
PROVIDERS: ATTEND Family Medicine
DX: Z09 Encounter for follow-up examination after completed treatment for conditions other than malignant neoplasm (principal); D50.9 Iron deficiency anemia, unspecified

== ENCOUNTER → 2024-05-26 | Outpatient (REF) | payer MEDICARE | LOC: M SFHCPLAZ 13:56 | PROVIDERS: ATTEND Family Medicine | DX: Z09 Encounter for follow-up examination after completed treatment for conditions other than malignant neoplasm (principal); D50.9 Iron deficiency anemia, unspecified; Z53.9 Procedure and treatment not carried out, unspecified reason ==

== ENCOUNTER → 2024-06-17 | Outpatient (CLI) | payer MEDICARE ==
[2024-06-17 15:17] LABS: MAGNESIUM LEVEL 1.8 MG/DL (1.8-2.4)
[2024-06-17 15:21] LABS: FERRITIN 115.1 NG/ML (7.3-270.7)
== END ==
LOC: M LAB 13:07
PROVIDERS: ATTEND Student in an Organized Health Care Education/Training Program
DX: K74.69 Other cirrhosis of liver (principal); Z09 Encounter for follow-up examination after completed treatment for conditions other than malignant neoplasm

== ENCOUNTER → 2024-06-17 | Outpatient (CLI) | payer MEDICARE | LOC: M RAD 12:58 | PROVIDERS: ATTEND Urology | DX: N20.0 Calculus of kidney (principal) ==

== ENCOUNTER → 2024-06-17 | Outpatient (REF) | payer MEDICARE | LOC: M SFHCPLAZ 14:59 | PROVIDERS: ATTEND Physician Assistant | DX: R39.9 Unspecified symptoms and signs involving the genitourinary system (principal) ==

== ENCOUNTER → 2024-06-17 | Outpatient (CLI) | payer MEDICARE ==
[2024-06-17 15:03] LABS: BASO % 0.4 % (0.0-1.0); EOS # 0.2 10^3/uL (0.0-0.5); EOS % 2.4 % (0.0-3.0); HEMATOCRIT 34.8 % (36.0-47.0); HEMOGLOBIN 11.2 g/dl (12.0-15.5); LYMPH # 2.7 10^3/uL (1.5-5.0); LYMPH % 39.9 % (24.0-44.0); MEAN CORPUSCULAR HEMOGLOBIN 26.5 pg (27.0-33.0); MEAN CORPUSCULAR HGB CONC 32.2 g/dl (32.0-36.5); MEAN CORPUSCULAR VOLUME 82.5 fl (80.0-96.0); MONO # 0.4 10^3/uL (0.0-0.8); MONO % 5.4 % (2.0-8.0); NEUTROPHILS # 3.5 10^3/uL (1.5-8.5); NEUTROPHILS % 51.6 % (36.0-66.0); PLATELET COUNT, AUTOMATED 231 10^3/uL (150-450); RED BLOOD COUNT 4.22 10^6/uL (4.00-5.40); WHITE BLOOD COUNT 6.7 10^3/uL (4.0-10.0)
[2024-06-17 15:16] LABS: C REACTIVE PROTEIN QUANTITATIV < 0.40 MG/DL (<1.0)
[2024-06-17 15:20] LABS: ALBUMIN 3.8 G/DL (3.2-5.2); ALKALINE PHOSPHATASE 77 U/L (46-116); ALT/SGPT 36 U/L (7.0-40); AST/SGOT 38 U/L (<34); BILIRUBIN,TOTAL 0.6 MG/DL (0.3-1.2); BLOOD UREA NITROGEN 13 MG/DL (9-23); CALCIUM LEVEL 9.1 MG/DL (8.3-10.6); CARBON DIOXIDE LEVEL 30 MMOL/L (20-31); CHLORIDE LEVEL 104 MMOL/L (98-107); CREATININE FOR GFR 0.72 MG/DL (0.55-1.30); GLOMERULAR FILTRATION RATE > 60.0 (>45); GLUCOSE, FASTING 114 MG/DL (74-106); POTASSIUM SERUM 3.3 MMOL/L (3.5-5.1); SODIUM LEVEL 142 MMOL/L (136-145); TOTAL PROTEIN 7.4 G/DL (5.7-8.2)
[2024-06-17 15:37] LABS: ERYTHROCYTE SEDIMENTATION RATE 36 mm/hr (0-30)
== END ==
LOC: M RAD 12:53
PROVIDERS: ATTEND Physician Assistant
DX: R39.9 Unspecified symptoms and signs involving the genitourinary system (principal); N20.0 Calculus of kidney; R50.9 Fever, unspecified; Z86.19 Personal history of other infectious and parasitic diseases

== ENCOUNTER 2024-07-24 13:42 | Emergency (ER) | payer MEDICARE ==
[~2024-07-24] VITALS: Ht 160 cm; Wt 102.3 kg
[2024-07-24 15:40] LABS: BASO # 0.1 10^3/uL (0.0-0.2); BASO % 0.6 % (0.0-1.0); EOS # 0.2 10^3/uL (0.0-0.5); EOS % 2.3 % (0.0-3.0); HEMATOCRIT 39.3 % (36.0-47.0); LYMPH # 3.2 10^3/uL (1.5-5.0); LYMPH % 35.5 % (24.0-44.0); MEAN CORPUSCULAR HEMOGLOBIN 26.9 pg (27.0-33.0); MEAN CORPUSCULAR HGB CONC 33.1 g/dl (32.0-36.5); MEAN CORPUSCULAR VOLUME 81.4 fl (80.0-96.0); MONO # 0.4 10^3/uL (0.0-0.8); MONO % 4.7 % (2.0-8.0); NEUTROPHILS % 56.4 % (36.0-66.0); PLATELET COUNT, AUTOMATED 277 10^3/uL (150-450); RED BLOOD COUNT 4.83 10^6/uL (4.00-5.40); WHITE BLOOD COUNT 8.9 10^3/uL (4.0-10.0)
[2024-07-24] MEDS: ONDANSETRON 4MG 2ML VIAL IV ONE (15:46)
[2024-07-24] MEDS: MORPHINE 4 MG/ML 1ML VIAL IV PRN (15:46)
[2024-07-24 17:39] LABS: LIPASE 52 U/L (12-53)
[2024-07-24 17:44] LABS: ALBUMIN 3.6 G/DL (3.2-5.2); ALKALINE PHOSPHATASE 81 U/L (46-116); ALT/SGPT 23 U/L (7.0-40); AST/SGOT 22 U/L (<34); BILIRUBIN,DIRECT < 0.1 MG/DL (<0.4); BILIRUBIN,TOTAL 0.3 MG/DL (0.3-1.2); BLOOD UREA NITROGEN 13 MG/DL (9-23); CALCIUM LEVEL 8.8 MG/DL (8.3-10.6); CARBON DIOXIDE LEVEL 25 MMOL/L (20-31); CHLORIDE LEVEL 106 MMOL/L (98-107); GLOMERULAR FILTRATION RATE > 60.0 (>45); GLUCOSE, FASTING 114 MG/DL (74-106); POTASSIUM SERUM 4.1 MMOL/L (3.5-5.1); SODIUM LEVEL 137 MMOL/L (136-145); TOTAL PROTEIN 7.4 G/DL (5.7-8.2)
[2024-07-24] MEDS ORDERED: CIPR250T26 PO (18:40)
[2024-07-24] MEDS: PERCOCET 5MG/325MG TAB PO ONE (18:46)
[2024-07-24] MEDS ORDERED: PERC5TAB12 PO (18:55)
[2024-07-24 21:25] VITALS: BP 147/65; TEMP 96.3; O2SAT 94
[2024-07-27] MEDS ORDERED: CEFD300C PO (07:05)
== END 2024-07-24 21:30 | disposition home or self-care (01) ==
LOC: M ED 13:42
DX: M16.0 Bilateral primary osteoarthritis of hip (principal); N39.0 Urinary tract infection, site not specified; I10 Essential (primary) hypertension; N18.9 Chronic kidney disease, unspecified; N20.0 Calculus of kidney; R16.2 Hepatomegaly with splenomegaly, not elsewhere classified
CPT/HCPCS: 70450; 73521; 74176; 80048; 80076; 81001; 83690; 85025; 87088; 87186; 93005; 93041; 96374; 96375; 99285; J2405

== ENCOUNTER → 2024-07-27 | Outpatient (CLI) | payer MEDICARE ==
[~2024-07-27] MED LIST changes: +CEFD300C PO; +CIPR250T26 PO
== END ==
LOC: M RAD 07:16
PROVIDERS: ATTEND Student in an Organized Health Care Education/Training Program
DX: K74.60 Unspecified cirrhosis of liver (principal)

== ENCOUNTER → 2024-10-25 | Outpatient (CLI) | payer MEDICARE ==
[2024-10-25 17:28] LABS: BASO % 0.5 % (0.0-1.0); EOS # 0.1 10^3/uL (0.0-0.5); EOS % 1.7 % (0.0-3.0); IRON (FE) 78 UG/DL (50-170); LYMPH % 36.2 % (24.0-44.0); MEAN CORPUSCULAR HEMOGLOBIN 28.8 pg (27.0-33.0); MEAN CORPUSCULAR HGB CONC 32.4 g/dl (32.0-36.5); MEAN CORPUSCULAR VOLUME 88.7 fl (80.0-96.0); MONO # 0.4 10^3/uL (0.0-0.8); MONO % 5.4 % (2.0-8.0); NEUTROPHILS # 4.6 10^3/uL (1.5-8.5); NEUTROPHILS % 55.8 % (36.0-66.0); PLATELET COUNT, AUTOMATED 245 10^3/uL (150-450); RED BLOOD COUNT 4.17 10^6/uL (4.00-5.40); TOTAL IRON BINDING CAPACITY 325 UG/DL (250-425); WHITE BLOOD COUNT 8.2 10^3/uL (4.0-10.0)
[2024-10-25 17:29] LABS: ALBUMIN 3.8 G/DL (3.2-5.2); ALKALINE PHOSPHATASE 76 U/L (35-104); ALT/SGPT 30 U/L (7.0-40); AST/SGOT 28 U/L (<34); BILIRUBIN,TOTAL 0.4 MG/DL (0.3-1.2); BLOOD UREA NITROGEN 17 MG/DL (9-23); CALCIUM LEVEL 9.5 MG/DL (8.3-10.6); CARBON DIOXIDE LEVEL 26 MMOL/L (20-31); CHLORIDE LEVEL 105 MMOL/L (98-107); CREATININE FOR GFR 0.67 MG/DL (0.55-1.30); GLOMERULAR FILTRATION RATE > 60.0 (>45); GLUCOSE, FASTING 98 MG/DL (74-106); POTASSIUM SERUM 4.1 MMOL/L (3.5-5.1); SODIUM LEVEL 139 MMOL/L (136-145); TOTAL PROTEIN 7.8 G/DL (5.7-8.2)
[2024-10-25 17:30] LABS: THYROID STIMULATING HORMONE 1.819 uIU/ML (0.55-4.78)
[2024-10-25 17:31] LABS: FERRITIN 80.1 NG/ML (7.3-270.7); FREE T4 1.08 NG/DL (0.89-1.76)
[2024-10-25 17:37] LABS: INR 0.98; PARTIAL THROMBOPLASTIN TIME 41.3 SECONDS (24.8-34.2); PROTHROMBIN TIME 13.3 SECONDS (12.5-14.5)
== END ==
LOC: M PLALAB 14:22
DX: D50.9 Iron deficiency anemia, unspecified (principal); E87.70 Fluid overload, unspecified; K76.0 Fatty (change of) liver, not elsewhere classified; Z79.899 Other long term (current) drug therapy

== ENCOUNTER → 2024-12-09 | Outpatient (CLI) | payer MEDICARE ==
[2024-12-09 15:01] LABS: C REACTIVE PROTEIN QUANTITATIV < 0.50 MG/DL (<1.0); CHOLESTEROL LEVEL 253 MG/DL (<200); CHOLESTEROL RISK RATIO 5.92 (<5); HDL CHOLESTEROL 42.7 MG/DL (>40); LDL CHOLESTEROL 174.9 MG/DL (<100); NON-HDL-C 210.3 MG/DL; TRIGLYCERIDES LEVEL 177 MG/DL (<150)
[2024-12-09 15:03] LABS: RHEUMATOID FACTOR QUANT 7.4 IU/ML (<14)
[2024-12-09 15:05] LABS: TOTAL 25(OH) VITAMIN D 23.6 NG/ML (20.0-100.0)
[2024-12-09 15:40] LABS: HEMOGLOBIN A1c 6.3 % (4.0-6.0)
[2024-12-10 15:08] LABS: ANA SCREEN, IFA POSITIVE (NEGATIVE)
[2024-12-10 23:47] LABS: CYCLIC CITRULLINATED PEPTIDE < 16 UNITS (<20)
== END ==
LOC: M PLALAB 09:57
PROVIDERS: ATTEND Student in an Organized Health Care Education/Training Program
DX: M25.511 Pain in right shoulder (principal); R73.03 Prediabetes; Z13.220 Encounter for screening for lipoid disorders; Z13.21 Encounter for screening for nutritional disorder; M25.512 Pain in left shoulder; I10 Essential (primary) hypertension; M16.0 Bilateral primary osteoarthritis of hip; K76.0 Fatty (change of) liver, not elsewhere classified; G89.29 Other chronic pain; Z79.891 Long term (current) use of opiate analgesic

== ENCOUNTER → 2024-12-29 | Outpatient (CLI) | payer MEDICARE ==
[2024-12-29 14:20] LABS: COMPLEMENT C3 183.5 MG/DL (90.0-170.0)
[2024-12-29 14:21] LABS: COMPLEMENT C4 28.8 MG/DL (12-36)
[2024-12-31 15:32] LABS: ANTI SMITH(Sm) AB <1.0 NEG AI (<1.0 NEG); SSA SJOGRENS A <1.0 NEG AI (<1.0 NEG); SSB SJOGRENS B <1.0 NEG AI (<1.0 NEG)
[2025-01-02 19:08] LABS: COMPLEMENT TOTAL (CH50) > 60 U/mL (31-60)
[2025-01-04 15:42] LABS: ANTI-SMOOTH MUSCLE ANTIBODY < 20 U (<20)
[2025-01-05 00:56] LABS: Anticardiolipin Ab, IGG < 2.0 GPL-U/mL (<20.0); Anticardiolipin Ab, IGM 4.9 MPL-U/mL (<20.0); Anticardiolipin Ab, IgA 15.8 APL-U/mL (<20.0); Beta-2 GLYCOPROTEIN I, IGG < 2.0 U/mL (<20.0); Beta-2 Glycoprotein I, IGA 25.2 U/mL (<20.0); Beta-2 Glycoprotein I, IGM 3.8 U/mL (<20.0)
[2025-01-05 01:17] LABS: HEXAGONAL PHASE CONFIRM Weak Positive (Negative)
[2025-01-05 01:27] LABS: ANTI DS-DNA AB NEGATIVE (NEGATIVE)
[2025-01-05 01:41] LABS: APTT APSCOMP 54 sec (<=40); DRVTT Screen Seconds 44 sec (<=45); THROMBIN CLOTTING TIME 16 sec (13-19)
== END ==
LOC: M PLALAB 11:34
PROVIDERS: ATTEND Student in an Organized Health Care Education/Training Program
DX: R76.8 Other specified abnormal immunological findings in serum (principal)

== ENCOUNTER → 2025-06-14 | Outpatient (CLI) | payer MEDICARE ==
[~2025-06-14] MED LIST changes: +AMLO1TAB24 PO; +AMOX875T2 PO; +DULO1CAP5 PO; -FLOM0.4C39 PO; +IRBE150T27 PO; +IRBE75TA11 PO; +METF-877 PO; +METF500T13 PO; +MIRA33506 PO; +NAPR-885 PO; +OXYC-517 PO; +PANT40TA29 PO; +SOLI10TA PO; +TAMS-18 PO; +[UNRECOGNIZED DRUG - CODE] PO
[2025-06-14 15:13] LABS: PLATELET COUNT, AUTOMATED 300 10^3/uL (150-450)
[2025-06-14 15:25] LABS: ALT/SGPT 31.0 U/L (7.0-40); AST/SGOT 36.0 U/L (<34); CALCIUM LEVEL 9.2 MG/DL (8.3-10.6); CARBON DIOXIDE LEVEL 25.0 MMOL/L (20-31); CHLORIDE LEVEL 102.0 MMOL/L (98-107); CREATININE FOR GFR 0.95 MG/DL (0.55-1.30); GLOMERULAR FILTRATION RATE 66.1 (>45); POTASSIUM SERUM 4.1 MMOL/L (3.5-5.1); SODIUM LEVEL 140.0 MMOL/L (136-145)
[2025-06-14 15:31] LABS: INR 0.94
== END ==
LOC: M PLALAB 11:01
PROVIDERS: ATTEND Urology
DX: N20.0 Calculus of kidney (principal)

== ENCOUNTER → 2025-06-16 | Outpatient (CLI) | payer MEDICARE | LOC: M PLAIMG 13:18 | PROVIDERS: ATTEND Urology | DX: N20.0 Calculus of kidney (principal) ==

== ENCOUNTER 2025-06-23 07:03 | Day surgery (SDC) | payer MEDICARE ==
[~2025-06-23] VITALS: Ht 160 cm; Wt 111.4 kg
[2025-06-23] MEDS ORDERED: MIDAZOLAM INJ 2 MG/2 ML VIAL As Ordered ONE (08:04)
[2025-06-23] MEDS ORDERED: ACETAMINOPHEN 1000MG/100ML IV BAG As Ordered ONE (08:05)
[2025-06-23] MEDS ORDERED: ONDANSETRON 4MG 2ML VIAL As Ordered ONE (08:05)
[2025-06-23] MEDS ORDERED: KETAMINE HCL 200 MG/20 ML VIAL As Ordered ONE (08:05)
[2025-06-23] MEDS ORDERED: LIDOCAINE 2% 100 MG/5 ML SDV (FOR ANES.) As Ordered ONE (08:05)
[2025-06-23] MEDS ORDERED: GLYCOPYRROLATE INJ 0.2 MG/ML 2 ML VIAL As Ordered ONE (08:05)
[2025-06-23] MEDS ORDERED: LR 1,000 ML IV SCH (08:45)
[2025-06-23] MEDS: ceFAZolin SOD 2 GM IV ONCE IV ONE (08:50)
[2025-06-23 10:20] VITALS: BP 130/62; TEMP 97; O2SAT 95
== END 2025-06-23 10:40 | disposition home or self-care (01) ==
LOC: M SDC 07:03
PROVIDERS: ATTEND Urology
DX: N20.0 Calculus of kidney (principal); I10 Essential (primary) hypertension; K76.0 Fatty (change of) liver, not elsewhere classified; M79.7 Fibromyalgia; Z79.899 Other long term (current) drug therapy; K21.9 Gastro-esophageal reflux disease without esophagitis; Z90.49 Acquired absence of other specified parts of digestive tract
CPT/HCPCS: 50590; 74018; J0131; J0690; J1596; J2250; J2405; J3010